=== PATIENT | female | born 1955 | race Two or more races ===

== ENCOUNTER 2024-07-22 07:21 | Emergency (ER) | payer OTHER ==
[~2024-07-22] VITALS: Ht 162.6 cm; Wt 85.7 kg
--- NOTE | 2024-07-22 07:55 | ED.PDOC ---
Musculoskeletal HPI Comments 68 y.o female with PMHx of lupus, HTN, breast and ovarian cancer, presents to the ED for a chief complaint of left shoulder pain that started 2 days ago. Patient reports pain started after moving her dressing at home and now is radiating to her left sided shoulder, neck and head. Patient described pain as a spasm that is constant and rating a 5/10 on the pain scale. Patient denies any recent falls, numbness, or focal weaknesses. Chief Complaint: Neck Pain Time Seen by MD: 07:50 Primary Care Provider: unknown Reviewed Notes: Nurses Notes, Medications, Allergies Allergies: Coded Allergies: NO KNOWN ALLERGIES (Unverified , 07/22/24) Information Source: Patient Mode of Arrival: Ambulatory Location: Left Extremity Location: Shoulder Timing: Days (2) Severity: Moderate Able to Move Extremity: No Bear Weight: Limited Pain: Moderate Mechanism: None Circumstances: Other Onset of Symptoms: After Trauma Symptoms: Pain DVT Risk Factors: NONE Associated signs and symptoms: Shoulder pain, Neck pain Past Medical History PAST MEDICAL HISTORY: Cancer (breast and ovarian ), HTN Past Medical History (Other): Lupus Surgical History: Hysterectomy Surgical History (Other): Mastectomy 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 Family History Family History: Reviewed,noncontributory to illness, No family hx of Cancer, No family hx of DM, No family hx of Heart chary, No family hx of HTN, No family hx ofKidney chary, No family hx of Liver chary, No family hx of Lung chary, No family hx of Stroke Social History Smoker: Non-Smoker Alcohol: Denies ETOH Use Drugs: Denies Drug Use Lives In: Home Constitutional: denies: chills, diaphoresis, fatigue, fever, malaise, sweats, weakness, others EENTM: denies: blurred vision, double vision, ear bleeding, ear discharge, ear drainage, ear pain, ear ringing, eye pain, eye redness, hearing loss, mouth pain, mouth swelling, nasal discharge, nose bleeding, nose congestion, nose jose n, photophobia, tearing, throat pain, throat swelling, voice changes, others Respiratory: denies: cough, hemoptysis, orthopnea, SOB at rest, shortness of breath, SOB with excertion, stridor, wheezing, others Cardiovascular: denies: chest pain, dizzy spells, diaphoresis, Dyspnea on exertion, edema, irregular heart beat, left arm pain, lightheadedness, palpitations, PND, syncope, others Gastrointestinal: denies: abdomen distended, abdominal pain, blood streaked bowels, constipated, diarrhea, dysphagia, difficulty swallowing, hematemesis, melena, nausea, poor appetite, poor fluid intake, rectal bleeding, rectal pain, vomiting, others Genitourinary: denies: abnormal vagina bleeding, burning, dyspareunia, dysuria, flank pain, frequency, hematuria, incontinence, pain, , vagina discharge, urgency, others Neurological: denies: dizziness, fainting, headache, left sided numbness, left sided weakness, numbness, paresthesia, pre-existing deficit, right sided numbness, right sided weakness, seizure, speech problems, tingling, tremors, weakness, others Musculoskeletal: reports: neck pain, others (left shoulder pain ); denies: back pain, gout, joint pain, joint swelling, muscle pain, muscle stiffness Integumetry: denies: bruises, change in color, change in hair/nails, dryness, laceration, lesions, lumps, rash, wounds, others Allergic/Immunocompromised: denies: Difficulty Healing, Frequent Infections, Hives, Itching, others Hematologic/Lymphatic: denies: anemia, blood clots, easy bleeding, easy bruising, swollen glands, others Endocrine: denies: excessive hunger, excessive sweating, excessive thirst, excessive urination, flushing, intolerance to cold, intolerance to heat, unexplained weight gain, unexplained weight loss, others Psychiatric: denies: anxiety, bipolar disorder, depression, hopeless, panic disorder, schizophrenia, sleepless, suicidal, others Physical Exam General Appearance: No Apparent Distress, Normal HEENT: Normal ENT Inspection, Pharynx Normal, TMs Normal Neck: Full Range of Motion, Non-Tender, Normal, Normal Inspection Respiratory: Chest Non-Tender, Lungs Clear, No Accessory Muscle Use, No Respiratory Distress, Normal Breath Sounds Cardiovascular: No Edema, No JVD, No Murmur, No Gallop, Normal Peripheral Pulses, Regular Rate/Rhythm Breast Exam: Deferred Gastrointestinal: No Organomegaly, Non Tender, No Pulsatile Mass, Normal Bowel Sounds, Soft Genitalia: Deferred Pelvic: Deferred Rectal: Deferred Extremities: Tender (left sided trapezius tenderness) Musculoskeletal : Apperance: Normal 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 Was a procedure done?: No Differential Diagnosis EXT Differential Diagnosis: Fracture, Sprain, Dislocation, Strain X-Ray, Labs, Meds, VS Vital Signs Date Time Temp Pulse Resp B/P (MAP) Pulse Ox O2 Delivery O2 Flow Rate FiO2 07/22/24 07:58 98.1 63 16 154/88 (110) 99 98.1 07/22/24 07:58 63 16 99 Room Air* 0 21 07/22/24 07:43 97.8 68 16 142/95 (111) 95 Current Medications Medications (Trade) Dose Ordered Sig/Rai Route Start Time Stop Time Status Last Admin Ketorolac Tromethamine (Toradol Injection) 15 mg ONCE ONCE IM 07/22/24 07:45 07/22/24 07:46 DC 07/22/24 07:57 Time of 1ST Reevaluation: 07:50 Reevaluation 1ST: Unchanged Patient Education/Counseling: Diagnosis, Treatment, Prognosis, Need For Follow Up Family Education/Counseling: No Family Present Additional Information i ordered and agree with the c spine xray interpretation form radiology. pt will be placed on flexeril and motrin for trapezius strain with degenerative cervical spine Departure 1 Departure Time of Disposition: 09:10 Impression: Primary Impression: Cervical spine degeneration Qualified Codes: M47.812 - Spondylosis without myelopathy or radiculopathy, cervical region Additional Impression: Trapezius muscle spasm Disposition: 01 HOME / SELF CARE / HOMELESS Condition: Good e-Prescriptions Ibuprofen Micronized (MOTRIN TABLET) 600 Mg Tb 600 MG PO TID PRN, #40 TAB *Black box warning-NSAIDS can increase risk of MO & hypertension, GI irritation, ulceration, bleed, perferation. Do not use post cardiac surgery. Use short duration/lowest effective dose. Prov: MARCOS GOODWIN MD 07/22/24 Cyclobenzaprine Hcl (Cyclobenzaprine Hcl) 10 Mg Tab 10 MG PO Q8HP PRN for 3 Days, #9 TAB Prov: MARCOS GOODWIN MD 07/22/24 Discharged With: Self Critical Care Note Critical Care Time?: No Stability Stability form required: No Heart Score Heart Score: Heart Score Response (Comments) Value History N/A 0 EKG N/A 0 Age N/A 0 Risk Factors N/A 0 Troponin N/A 0 Total 0 I personally scribed for MARCOS GOODWIN MD ([facility]) on 07/22/24 at 07:55. Electronically submitted by Jenna Sharpe ([facility]). MARCOS GOODWIN MD Jul 22, 2024 07:55
[2024-07-22] MEDS: KETOROLAC TROMETH 30 MG/ML 1ML VIAL IM ONE (07:57)
[2024-07-22 07:58] VITALS: BP 154/88; PULSE 63; RESP 16; TEMP 98.1; O2SAT 99
--- NOTE | 2024-07-22 08:55 | DVH ---
INDICATION: injury COMPARISON: None TECHNIQUE: 3 views of the cervical spine were obtained. FINDINGS: The cervical vertebral alignment is normal. The predental space is normal. Multilevel intervertebral disc space narrowing throughout the cervical spine. No acute fracture, vertebral compression deformity or aggressive osseous lesions. The imaged lung apices are unremarkable. IMPRESSION: 1. No acute fracture. 2. Multilevel intervertebral disc degeneration.
[2024-07-22] MEDS ORDERED: IBU600T PO (09:12)
[2024-07-22] MEDS ORDERED: CYCL-839 PO (09:12)
== END 2024-07-22 09:21 | disposition home or self-care (01) ==
LOC: ER 07:21
DX: M50.30 Other cervical disc degeneration, unspecified cervical region (principal); M62.838 Other muscle spasm; I10 Essential (primary) hypertension; Z85.43 Personal history of malignant neoplasm of ovary; Z90.710 Acquired absence of both cervix and uterus
CPT/HCPCS: 72040; 96372; 99283; J1885